=== PATIENT | female | born 1990 | race Caucasian/White ===

== ENCOUNTER → 2020-02-06 | Outpatient (CLI) | payer OTHER ==
--- NOTE | 2020-02-06 10:45 | RAD ---
CT MAXILLOFACIAL WO CONTRAST Indication: Sinusitis Comparison study: None. Technique: Noncontrast CT of the maxillofacial region was performed in the axial plane. Sagittal and coronal reconstructions were performed. One or more of the following dose reduction techniques were utilized: Automated exposure control (AEC), Adjustment of mA and/or kV according to patient size, Use of iterative reconstruction technique such as ASiR, CT scan done according to ALARA and image gently/image wisely Findings: The maxillary, ethmoid, and sphenoid sinuses are clear. Frontal sinuses are underpneumatized. No air-fluid levels. No significant mucoperiosteal thickening. The osteomeatal units are patent. Nasal septum is slightly deviated to the left. The visualized osseous structures are otherwise normal. The visualized orbits and globes are normal. The visualized brain parenchyma is normal in attenuation. IMPRESSION: No evidence of inflammatory sinonasal disease. Electronically signed by: Mingo Messina MD (02/06/2020 10:42 AM) [id number]
== END ==
LOC: CT 09:59
PROVIDERS: ATTEND Family Medicine
DX: J32.9 Chronic sinusitis, unspecified (principal)
CPT/HCPCS: 70486